=== PATIENT | female | born 1930 | race Two or more races ===

== ENCOUNTER → 2017-04-10 | Emergency (ER) | payer OTHER ==
[~2017-04-10] VITALS: Ht 149.9 cm; Wt 53.1 kg
[~2017-04-10] MED LIST: ALLEGRA30 MG PO; CARTIA XT180 MG; COZAAR25 MG; COZAAR25 MG PO; CRESTOR10 MG PO; DIGOXIN 50 MCG/ML; DIGOXIN125 MCG PO; GASTRINEX CAPSU1 CAP PO; INDAPAMIDE2.5 MG; LEVAQUIN750 MG PO; MEDROLPACK PO; PROTONIX40 MG PO; TESSALON PERLE100 MG PO; XOPENEX CO1.25 MG/0. IH
== END | disposition home or self-care (01) ==
LOC: ER 07:00
DX: J09.X2 Influenza due to identified novel influenza A virus with other respiratory manifestations (principal); J45.901 Unspecified asthma with (acute) exacerbation

== ENCOUNTER → 2017-06-22 | Emergency (ER) | payer OTHER ==
[~2017-06-22] VITALS: Ht 149.9 cm; Wt 49.0 kg
== END | disposition home or self-care (01) ==
LOC: ER 10:12
DX: R05 Cough (principal)

== ENCOUNTER → 2017-08-30 | Outpatient (CLI) | payer OTHER | END | disposition home or self-care (01) | LOC: RAD 07:36 | DX: J44.1 Chronic obstructive pulmonary disease with (acute) exacerbation (principal) ==

== ENCOUNTER → 2018-01-30 07:49 | Outpatient (CLI) | payer OTHER | END | disposition home or self-care (01) | LOC: LAB 07:49 | DX: R42 Dizziness and giddiness (principal); N39.0 Urinary tract infection, site not specified; J80 Acute respiratory distress syndrome ==

== ENCOUNTER 2018-05-07 07:47 | Outpatient (CLI) | payer OTHER | END 2018-05-07 08:39 | disposition home or self-care (01) | LOC: RAD 07:47 | DX: N64.89 Other specified disorders of breast (principal); J80 Acute respiratory distress syndrome; N64.59 Other signs and symptoms in breast; Z12.31 Encounter for screening mammogram for malignant neoplasm of breast ==

== ENCOUNTER 2018-09-03 07:47 | Outpatient (CLI) | payer OTHER | END 2018-09-03 11:08 | disposition home or self-care (01) | LOC: TOM 07:47 | DX: R04.2 Hemoptysis (principal) ==